=== PATIENT | male | born 1950 | race Caucasian/White ===

== ENCOUNTER 2018-01-26 13:44 | Emergency (ER) | payer MEDICARE ==
[~2018-01-26 13:44] MED LIST: ISOVUE-370 76%-LOCM 1 ML ONE
--- NOTE | 2018-01-26 16:07 | RAD ---
PA AND LATERAL CHEST: Date: 01-26-18 History: Rib pain. Urinary retention. Comparison: None available. FINDINGS: Post-surgical changes related to cervical fusion lower cervical spine are noted. Vascular calcificati ons are seen in the abdominal aorta involving the iliac arteries. Cardiac silhouette and pulmonary va sculature are within normal limits. There is minimal patchy density seen at the right lung base which may be related to superimposition of structures including anterior ribboning and vascular structures , but a focal areas of pneumonitis cannot be entirely excluded as this is asymmetric compared to the contralateral left side. Lungs are otherwise clear. Cardiac silhouette and pulmonary vasculature are within normal limits. Osseous structures appear intact. IMPRESSION: 1. Minimal patchy density right lung base. This may represent superimposition of structures, but foca l area of pneumonitis could not be entirely excluded. Clinical correlation for pneumonitis is recomme nded as well as short interval follow up chest x-ray. 2. Visualized osseous structures appear intact. No pneumothorax or pleural effusion is seen. POS: [facility]
[2018-01-26 17:27] LABS: #Eosinphils 0.3 thou/uL (0.0-0.7); #Lymphocytes 1.8 thou/uL (1.20-3.40); #Monocytes 0.7 thou/uL (0.11-0.59); #Neutrophils 8.1 thou/uL (1.40-6.50); %Basophils 0.4 % (0.0-1.0); %Eosinophils 2.5 % (0.0-10.0); %Lymphocytes 16.5 % (21.0-51.0); %Monocytes 6.2 % (0.0-10.0); %Neutrophils 74.3 % (42.0-75.0); Hemoglobin 15.4 g/dL (14.0-18.0); Mean Corpuscular HGB CONC 34.9 g/dL (32.0-36.0); Mean Corpuscular Hemoglobin 31.6 pg (27.0-31.0); Mean Corpuscular Volume 90.7 fL (78.0-98.0); Mean Platelet Volume 6.5 fL (7.4-10.4); Platelet Count 365 thou/uL (130-400); RBC Distribution Width 12.7 % (11.5-14.5); Red Blood Cell (RBC) Count 4.85 mill/uL (4.70-6.10); White Blood Cell (WBC) Count 10.9 thou/uL (4.8-10.8)
[2018-01-26 17:56] LABS: ALT (SGPT) 18 U/L (8-55); AST (SGOT) 17 U/L (5-34); Albumin 4.5 g/dL (3.4-4.8); Alkaline Phosphatase 127 U/L (40-150); Anion Gap 14 mmol/L (10-20); BUN (Urea Nitrogen) 11 mg/dL (8.4-25.7); Bilirubin, Total 0.6 mg/dL (0.2-1.2); Calc. Creatinine Clearance 0 mL/min (70-130); Calcium 9.7 mg/dL (7.8-10.44); Carbon Dioxide 29 mmol/L (23-31); Chloride 98 mmol/L (98-107); Estimated GFR-MDRD 85; Globulin 3.7 g/dL (2.4-3.5); Glucose 90 mg/dL (80-115); Lipase 4 U/L (8-78); Potassium 3.2 mmol/L (3.5-5.1); Protein, Total 8.2 g/dL (5.8-8.1); Sodium 138 mmol/L (136-145)
[2018-01-26 18:21] LABS: Bilirubin Negative (Negative); Blood, Urine Negative (Negative); Clarity CLEAR (Clear); Glucose, Urine (Dipstick) Negative (Negative); Leukocyte Negative (Negative); Nitrite Negative (Negative); Protein, Urine (Dipstick) Negative (Neg-Trace); Specific Gravity, Urine 1.008 (1.002-1.036); Urobilinogen 0.2 mg/dL (0.2-1.0)
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
--- NOTE | 2018-02-07 11:13 | EKG ---
Test Reason : Blood Pressure : / mmHG Vent. Rate : 067 BPM Atrial Rate : 067 BPM P-R Int : 156 ms QRS Dur : 076 ms QT Int : 444 ms P-R-T Axes : 024 014 022 degrees QTc Int : 469 ms Normal sinus rhythm Normal ECG Baseline Artifact Present limits interpretation Confirmed by JAYDON HERNANDEZ DO ([id number]), editorial writer JIE GARCIA ([id number]) on 02/07/2018 11:13:15 AM Referred By: Confirmed By:JAYDON HERNANDEZ DO
== END 2018-01-26 19:48 | disposition home or self-care (01) ==
LOC: ERS 13:44
DX: S09.90XA Unspecified injury of head, initial encounter (principal); S41.112A Laceration without foreign body of left upper arm, initial encounter; S20.212A Contusion of left front wall of thorax, initial encounter; I10 Essential (primary) hypertension; E78.00 Pure hypercholesterolemia, unspecified; E03.9 Hypothyroidism, unspecified; N40.0 Benign prostatic hyperplasia without lower urinary tract symptoms; F17.210 Nicotine dependence, cigarettes, uncomplicated; Z79.899 Other long term (current) drug therapy; V49.9XXA Car occupant (driver) (passenger) injured in unspecified traffic accident, initial encounter; R33.9 Retention of urine, unspecified; R06.00 Dyspnea, unspecified; R07.9 Chest pain, unspecified; T07.XXXA Unspecified multiple injuries, initial encounter
CPT/HCPCS: 70450; 71046; 71260; 72125; 74177; 80053; 81003; 83690; 85025; 87086; 90471; 93005; 94760; 99213; G0463

== ENCOUNTER 2019-05-16 13:38 | Inpatient (IN) | payer MEDICARE ==
[~2019-05-16 13:38] MED LIST changes: -ISOVUE-370 76%-LOCM 1 ML ONE; +Iopamidol-370 76% 500 ML 1 ML ONE
[2019-05-16 15:01] LABS: #Eosinphils 0.1 thou/uL (0.0-0.7); #Lymphocytes 1.2 thou/uL (1.20-3.40); #Monocytes 0.8 thou/uL (0.11-0.59); #Neutrophils 14.5 thou/uL (1.40-6.50); %Basophils 0.1 % (0.0-1.0); %Eosinophils 0.8 % (0.0-10.0); %Lymphocytes 7.1 % (21.0-51.0); %Monocytes 4.5 % (0.0-10.0); %Neutrophils 87.5 % (42.0-75.0); Hemoglobin 11.7 g/dL (14.0-18.0); Mean Corpuscular HGB CONC 33.6 g/dL (32.0-36.0); Mean Corpuscular Hemoglobin 30.9 pg (27.0-31.0); Mean Corpuscular Volume 91.9 fL (78.0-98.0); Mean Platelet Volume 7.3 fL (7.4-10.4); Platelet Count 280 thou/uL (130-400); RBC Distribution Width 12.5 % (11.5-14.5); Red Blood Cell (RBC) Count 3.78 mill/uL (4.70-6.10); White Blood Cell (WBC) Count 16.6 thou/uL (4.8-10.8)
[2019-05-16 15:09] LABS: INR-International Normal Ratio 1.1; PTT 35.5 SEC (22.9-36.1)
[2019-05-16 15:24] LABS: ALT (SGPT) 18 U/L (8-55); AST (SGOT) 24 U/L (5-34); Acetaminophen Less than 6.0 mcg/mL (10.0-30.0); Albumin 3.7 g/dL (3.4-4.8); Alcohol Less than 10 mg/dL (Less than 10); Alkaline Phosphatase 87 U/L (40-110); Anion Gap 12 mmol/L (10-20); BUN (Urea Nitrogen) 21 mg/dL (8.4-25.7); Bilirubin, Total 0.5 mg/dL (0.2-1.2); Calc. Creatinine Clearance 0 mL/min (70-130); Calcium 8.9 mg/dL (7.8-10.44); Carbon Dioxide 26 mmol/L (23-31); Chloride 100 mmol/L (98-107); Estimated GFR-MDRD 63; Globulin 2.9 g/dL (2.4-3.5); Glucose 77 mg/dL (80-115); Lipase 12 U/L (8-78); Potassium 3.9 mmol/L (3.5-5.1); Protein, Total 6.6 g/dL (5.8-8.1); Salicylate Less than 8.0 mg/dL (15.0-30.0); Sodium 134 mmol/L (136-145)
[2019-05-16] MEDS ORDERED: Azithromycin 500 MG VIAL ONE (15:27)
[2019-05-16] MEDS ORDERED: cefTRIAXone\\ROCEPHIN 2 GM VIAL ONE (15:27)
--- NOTE | 2019-05-16 16:13 | CT ---
CT Chest Abd Pelvis W Con Limited CT thoracic spine with contrast Limited CT lumbosacral spine with contrast History: Injury. Trauma. Comparison: CT chest abdomen pelvis January 2018 Findings: Severe background paraseptal emphysema and centrilobular emphysema. Spiculated mass posteri or segment right upper lobe projected 3.5 cm size with extensive adjacent subchondral fixation. There is displacement of the right major fissure. There is also numerous nodules throughout the right middle lobe, lingula, and right lower lobe. No significant mediastinal adenopathy. No pericardial effusion. Aorta is unremarkable. The sternum and manubrium are intact. No thoracic spine or lumbar spine compression fracture or no si gnificant listhesis. The spinous processes are intact. Visualized portion of the scapula are intact as well as visualized clavicles. No acute displaced right-sided rib fracture. No displaced left-sided rib fracture. The thoracic spine transverse processes are intact. No soft tissue contusion of the thorax. Liver is unremarkable as well as the gallbladder. Spleen is unremarkable. There is aneurysmal dilatat ion of the infrarenal abdominal aorta measuring up to 3.9 cm for a length of 6.5 cm. Osseous pelvis is intact. No pubic symphyseal widening. No SI joint widening. The femoral heads and f emoral necks are intact. No lumbar spine transverse process fracture. No soft tissue contusion. No hydronephrosis. No dilated loops of large or small bowel. No mesenteric hematoma. Sebaceous cyst over the right lower lateral flank/thigh. Impression: 1. Spiculated mass right upper lobe as described highly concerning for malignancy as this is new from the 2018 exam. Nonemergent follow-up pulmonary consultation and bronchoscopy is recommended. Severe background emphysema. 2. Patchy throughout both lungs concerning for superimposed infection. Underlying contusion is felt l ess likely given the lack with rib fractures and soft tissue contusion. 3. Infrarenal abdominal aorta measuring up to 3.9 cm for a length of 6.5 cm. 4. No acute traumatic abnormality within the chest, abdomen, or pelvis. 5. Asymmetric size of the kidneys with the right kidney is much smaller the left kidney may be sequel ae of vascular insufficiency versus chronic reflux disease. This is similar. 6. Similar appearance of the small nodule along the medial limb left adrenal gland.
[2019-05-16] MEDS ORDERED: Acetaminophen 325 MG TAB PO PRN (16:14)
[2019-05-16] MEDS ORDERED: Senokot S 8.6-50 MG TAB PO PRN (16:14)
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
--- NOTE | 2019-05-16 16:17 | CT ---
CERVICAL SPINE CT WITHOUT CONTRAST: Date: 05/16/19 HISTORY: Injury, trauma, pain. TECHNIQUE: Axial CT imaging at 2.5 mm intervals through the cervical spine with coronal and sagittal reformatted imaging. FINDINGS: The occipital condyles, dens, and C1-2 articulation appear within normal limits. There is moderate degenerative change at the atlantoaxial interspace. Anterior diskectomy and fusion hardware present at C5-6. No significant anterolisthesis or retrolisthesis is noted. No prevertebral soft tissue swelling. The C1 ring appears intact. No displaced fracture or evidence of dislocation is seen involving the ce rvical spine. Imaged lung apices demonstrate emphysematous change. There is atherosclerotic calcification of the carotid system, only partially visualized on this exam. There is multilevel mid cervical spine uncovertebral osteophyte formation bilaterally. IMPRESSION: Multilevel degenerative change. No acute fracture or dislocation of the cervical spine. POS: [facility]
[2019-05-16 16:31] LABS: Amphetamine Not Detected (NotDetected); Barbiturates Screen Not Detected (NotDetected); Benzodiazepine Screen Detected (NotDetected); Cocaine Metabolite Screen Not Detected (NotDetected); Medtox Control Line Valid? VALID (VALID); Medtox Reader # READER 1; Methadone Not Detected (NotDetected); Methamphetamine Not Detected (NotDetected); Opiate Screen Detected (NotDetected); Oxycodone Screen Not Detected (NotDetected); Phencyclidine (PCP) Not Detected (NotDetected); THC/Cannabinoid Screen Detected (NotDetected); Tricyclic Screen Not Detected (NotDetected)
[2019-05-16] MEDS ORDERED: methylPREDNISolone Sod Succ/PF 125 MG/2 ML VIAL IVP SCH (16:45)
[2019-05-16 17:09] LABS: Base Excess-Venous -2.1 mmol/L (-2.0 to 3.0); Bicarbonate (HCO3v) 23.9 mmol/L (22.0-28.0); CO2 Tension (PvCO2) 45.2 mmHg (40.0-50.0); Calcium, Ionized 1.03 mmol/L (See Comments:); Chloride 103 mmol/L (98-107); Hemoglobin - Calc 12.3 g/dL (14.0-18.0); Potassium 3.9 mmol/L (3.5-5.1); Sodium 136 mmol/L (138-145); T. Carbon Dioxide 25.3 mmol/L (22.0-28.0); vO2 Saturation-calc 82.2 % (60.0-85.0)
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
[2019-05-16 18:02] VITALS: BMI 21.6
[2019-05-16] MEDS: Ipratropium Bromide 2.5 ml Neb NEB SCH ×2 (18:23→21:42)
[2019-05-16 18:56] LABS: Troponin I 0.031 ng/mL (< 0.028)
[2019-05-16] MEDS: Nicotine 21 MG PATCH TD SCH (19:17)
[2019-05-16] MEDS ORDERED: HYDROcodone/Acetaminophen 5/325 mg Tablet PO SCH (21:15)
[2019-05-16] MEDS ORDERED: Gabapentin 300 MG CAP PO SCH (21:15)
[2019-05-16] MEDS: Docusate 100 MG CAP PO SCH (21:20)
[2019-05-16] MEDS: Atorvastatin Calcium 20 MG TAB PO SCH (21:22)
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
[2019-05-16 22:46] LABS: Troponin I 0.035 ng/mL (< 0.028)
[2019-05-17] MEDS: methylPREDNISolone Sod Succ 40 MG VIAL IVP SCH ×5 (05:35→23:40)
[2019-05-17] MEDS: Levothyroxine Sodium 112 MCG TAB PO SCH (05:36)
[2019-05-17 06:00] LABS: #Basophils 0.2 thou/uL (0.0-0.2); #Lymphocytes 0.7 thou/uL (1.20-3.40); #Monocytes 0.1 thou/uL (0.11-0.59); #Neutrophils 13.1 thou/uL (1.40-6.50); %Basophils 1.4 % (0.0-1.0); %Eosinophils 0.1 % (0.0-10.0); %Monocytes 0.9 % (0.0-10.0); %Neutrophils 92.6 % (42.0-75.0); Hemoglobin 11.8 g/dL (14.0-18.0); Mean Corpuscular Hemoglobin 30.9 pg (27.0-31.0); Mean Corpuscular Volume 90.9 fL (78.0-98.0); Mean Platelet Volume 7.6 fL (7.4-10.4); Platelet Count 283 thou/uL (130-400); RBC Distribution Width 12.3 % (11.5-14.5); Red Blood Cell (RBC) Count 3.81 mill/uL (4.70-6.10); White Blood Cell (WBC) Count 14.1 thou/uL (4.8-10.8)
[2019-05-17 06:19] LABS: Anion Gap 13 mmol/L (10-20); BUN (Urea Nitrogen) 18 mg/dL (8.4-25.7); Calc. Creatinine Clearance 81 mL/min (70-130); Calcium 8.9 mg/dL (7.8-10.44); Carbon Dioxide 24 mmol/L (23-31); Chloride 102 mmol/L (98-107); Estimated GFR-MDRD 86; Glucose 105 mg/dL (80-115); Sodium 135 mmol/L (136-145)
[2019-05-17] MEDS ORDERED: Prevnar 13-Val Conj/PF 0.5 ML SYRINGE IM ONE (09:00)
[2019-05-17] MEDS: Clopidogrel Bisulfate 75 MG TAB PO SCH (09:30)
[2019-05-17] MEDS: Docusate 100 MG CAP PO SCH ×2 (09:30→20:20)
[2019-05-17] MEDS: Enoxaparin Sodium 40 MG/0.4 ML SYRINGE SC SCH (09:30)
[2019-05-17] MEDS: Tamsulosin HCl 0.4 MG CAP PO SCH (09:31)
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
[2019-05-17] MEDS ORDERED: cefTRIAXone\\ROCEPHIN 1 GM in Sodium Chloride 0.9% 100 ML IVPB SCH (14:00)
[2019-05-17] MEDS ORDERED: Azithromycin 500 MG in Sodium Chloride 0.9% 250 ML 250 ML IVPB SCH (15:00)
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
[2019-05-17] MEDS: Nicotine 21 MG PATCH TD SCH (18:24)
[2019-05-17] MEDS: Atorvastatin Calcium 20 MG TAB PO SCH (20:20)
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
[2019-05-18 04:11] LABS: #Basophils 0.1 thou/uL (0.0-0.2); #Lymphocytes 0.6 thou/uL (1.20-3.40); #Monocytes 0.4 thou/uL (0.11-0.59); #Neutrophils 11.5 thou/uL (1.40-6.50); %Basophils 0.7 % (0.0-1.0); %Eosinophils 0.1 % (0.0-10.0); %Lymphocytes 4.8 % (21.0-51.0); %Monocytes 3.1 % (0.0-10.0); %Neutrophils 91.4 % (42.0-75.0); Hemoglobin 11.2 g/dL (14.0-18.0); Mean Corpuscular HGB CONC 33.1 g/dL (32.0-36.0); Mean Corpuscular Hemoglobin 30.2 pg (27.0-31.0); Mean Corpuscular Volume 91.2 fL (78.0-98.0); Mean Platelet Volume 7.4 fL (7.4-10.4); Platelet Count 299 thou/uL (130-400); RBC Distribution Width 12.5 % (11.5-14.5); Red Blood Cell (RBC) Count 3.69 mill/uL (4.70-6.10); White Blood Cell (WBC) Count 12.6 thou/uL (4.8-10.8)
[2019-05-18 04:29] LABS: Anion Gap 11 mmol/L (10-20); BUN (Urea Nitrogen) 22 mg/dL (8.4-25.7); Calc. Creatinine Clearance 81 mL/min (70-130); Calcium 8.9 mg/dL (7.8-10.44); Carbon Dioxide 27 mmol/L (23-31); Chloride 105 mmol/L (98-107); Estimated GFR-MDRD 86; Glucose 189 mg/dL (80-115); Potassium 3.7 mmol/L (3.5-5.1); Sodium 139 mmol/L (136-145)
[2019-05-18] MEDS: Levothyroxine Sodium 112 MCG TAB PO SCH (06:03)
[2019-05-18] MEDS: methylPREDNISolone Sod Succ 40 MG VIAL IVP SCH ×2 (06:03→12:09)
--- NOTE | 2019-05-18 07:53 | RAD ---
Chest one view HISTORY: Dyspnea. Follow-up. COMPARISON: 05/16/2019. FINDINGS: Cardiac silhouette is magnified and upper limits of normal in size. Pulmonary vasculature r emains engorged with patchy areas of ill-defined parenchymal opacity correlating with that on recent CT chest. More focal masslike area projecting over the right upper lobe is also again demonstr ated. Mediastinum is midline with aortic calcification. No evidence of pneumothorax. industrial machine assembler leads overlie the chest. IMPRESSION: Right upper lobe mass, pulmonary vascular congestion, and patchy areas of mild parenchyma l infiltrate are stable.
[2019-05-18] MEDS: Docusate 100 MG CAP PO SCH ×3 (09:00→21:29)
[2019-05-18] MEDS: Tamsulosin HCl 0.4 MG CAP PO SCH ×2 (09:00→12:11)
[2019-05-18] MEDS: Clopidogrel Bisulfate 75 MG TAB PO SCH ×2 (09:00→12:10)
[2019-05-18] MEDS: Enoxaparin Sodium 40 MG/0.4 ML SYRINGE SC SCH ×3 (09:00→21:31)
--- NOTE | 2019-05-18 11:22 | NM ---
NUCLEAR MEDICINE CARDIAC MYOCARDIAL PERFUSION SPECT EJECTION FRACTION STUDY WALL MOTION CINE: DATE: 05/18/2019 12:00 AM. INDICATION: Syncope. TECHNIQUE: Number of days: 2. Rest Study: Technetium 99m-sestamibi (Cardiolite) dose:10.70 mCi. Stress study: Technetium 99m-sestamibi (Cardiolite) dose:30.0 mCi. FINDINGS: Cardiac (myocardial perfusion) SPECT: There are no reversible myocardial perfusion defects. There is predominantly a fixed defect involving the basal to apical inferior wall likely related to diaphragmatic dilatation. There is some colon activity seen underlying the left ventricle on the stress images only that slightly limits detail. Th ere is mild left ventricular dilatation on both the rest and stress images. Ejection fraction study: Left ventricular EF = 50%. Wall motion cine There is normal wall motion and thickening. IMPRESSION: 1. No evidence of reversible myocardial ischemia. 2. Predominantly fixed defect involving the basal to apical inferior wall is likely related to diaph ragmatic attenuation. 3. Mild left ventricular dilatation. Transcribed Date/Time: 05/18/2019 11:25 AM
[2019-05-18] MEDS ORDERED: HYDROcodone/Acetaminophen 10/325 mg Tablet PO PRN (11:39)
[2019-05-18] MEDS ORDERED: Gabapentin 300 MG CAP PO PRN (11:39)
--- NOTE | 2019-05-18 12:39 | PRG ---
DATE OF SERVICE: 05/18/2019 SUBJECTIVE: This morning, he is better with less shortness of breath, less cough, less wheezing. OBJECTIVE: VITAL SIGNS: His sats are 96%_ on 2 L, pulse 77, respirations 15, blood pressure 139/73. CHEST: Minimal rhonchi. CARDIAC: Normal S1, S2. No gallops. ABDOMEN: No masses. DIAGNOSTIC STUDIES: He had a stress test done today, which showed left ventricle EF was 50%. Normal wall motion was seen. X-ray shows previously described right upper lung nodular density. ASSESSMENT: 1. Chronic obstructive pulmonary disease exacerbation. 2. Bronchitis. 3. Respiratory failure. 4. Severe deconditioning. 5. Coronary artery disease. PLAN: Switch him over to oral medication. PT, supportive care. We will follow. Job ID: [id number] MTDD
--- NOTE | 2019-05-18 13:48 | PRG ---
DATE OF SERVICE: 05/18/2019 SUBJECTIVE: Mr. Grady is doing okay. He is not having chest pain or pressure. OBJECTIVE: VITAL SIGNS: Blood pressure 146/86, pulse is variable between 70 to 110. He is having brief episodes of atrial fibrillation. LUNGS: Clear. CARDIAC: Irregular. ABDOMEN: Soft and nontender. EXTREMITIES: No edema. Stress test revealed a fixed defect of the inferior wall, looks like diaphragmatic attenuation artifact. ASSESSMENT: 1. Episode of loss of consciousness. 2. Peripheral vascular disease. 3. Chronic obstructive pulmonary disease. PLAN: It looks like the patient does have paroxysmal atrial fibrillation. We will need to monitor this gentleman and see if he have any pauses. If he has a pacemaker, it will be indicated. If he does not, then I told him that he needs to follow up at [facility] to get a 30-day event monitor placed. Job ID: [id number]
[2019-05-18] MEDS ORDERED: Regadenoson 0.4 MG/5 ML SYRINGE ONE (15:48)
[2019-05-18] MEDS: predniSONE 20 MG TAB PO SCH (17:13)
[2019-05-18] MEDS: Nicotine 21 MG PATCH TD SCH (17:13)
[2019-05-18] MEDS: Mometasone/Formoterol 120 PUFF INHALER INH SCH (18:07)
[2019-05-18] MEDS: Doxycycline 100 MG CAP PO SCH (21:29)
[2019-05-18] MEDS: Atorvastatin Calcium 20 MG TAB PO SCH (21:29)
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
[2019-05-19 05:44] LABS: Anion Gap 15 mmol/L (10-20); BUN (Urea Nitrogen) 13 mg/dL (8.4-25.7); Calc. Creatinine Clearance 93 mL/min (70-130); Calcium 9.2 mg/dL (7.8-10.44); Carbon Dioxide 28 mmol/L (23-31); Chloride 100 mmol/L (98-107); Estimated GFR-MDRD Greater than 90; Glucose 100 mg/dL (80-115); Potassium 3.3 mmol/L (3.5-5.1); Sodium 140 mmol/L (136-145)
[2019-05-19 05:57] LABS: Band 4 % (5-11); Lymphocytes 10 % (21-51); MDiff Complete? YES; Mean Corpuscular HGB CONC 33.5 g/dL (32.0-36.0); Mean Corpuscular Hemoglobin 30.5 pg (27.0-31.0); Mean Corpuscular Volume 90.8 fL (78.0-98.0); Mean Platelet Volume 7.4 fL (7.4-10.4); Monocytes 4 % (0-10); Neutrophil 82 % (42-75); Platelet Count 424 thou/uL (130-400); RBC Distribution Width 12.5 % (11.5-14.5); Red Blood Cell (RBC) Count 4.28 mill/uL (4.70-6.10)
[2019-05-19] MEDS ORDERED: Levothyroxine Sodium 125 MCG TAB PO SCH (06:00)
--- NOTE | 2019-05-19 07:33 | RAD ---
EXAM: Single view of the chest HISTORY: Ventilated patient with respiratory failure COMPARISON: 05/18/2019 FINDINGS: Single view of the chest shows a normal sized cardiomediastinal silhouette. Scattered mult ifocal infiltrates are stable. No pleural effusion is seen. The bones are unremarkable. IMPRESSION: Stable exam
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
[2019-05-19] MEDS: Mometasone/Formoterol 120 PUFF INHALER INH SCH (08:00)
[2019-05-19] MEDS ORDERED: Dutasteride 0.5 MG CAP PO SCH (09:00)
[2019-05-19] MEDS: Clopidogrel Bisulfate 75 MG TAB PO SCH (09:04)
[2019-05-19] MEDS: predniSONE 20 MG TAB PO SCH ×2 (09:04→17:00)
[2019-05-19] MEDS: Tamsulosin HCl 0.4 MG CAP PO SCH (09:04)
[2019-05-19] MEDS: Doxycycline 100 MG CAP PO SCH (09:04)
[2019-05-19] MEDS: Enoxaparin Sodium 40 MG/0.4 ML SYRINGE SC SCH (09:05)
[2019-05-19] MEDS: Docusate 100 MG CAP PO SCH (09:05)
[2019-05-19] MEDS ORDERED: Potassium Chloride 20 MEQ TAB PO SCH (09:30)
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
[2019-05-19 12:08] VITALS: TEMP 98.1
--- NOTE | 2019-05-19 14:28 | PDOC.EVN ---
Event Note - Event Note Event Note: pt needs home oxygen arranged due to RA oxygen sat of 88% at rest, has severe copd.
[2019-05-19 16:07] VITALS: BP 147/81
[2019-05-19] MEDS: Nicotine 21 MG PATCH TD SCH (17:00)
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
[2019-05-20] MEDS ORDERED: Apixaban 5 MG TAB PO SCH (21:00)
== END 2019-05-19 17:11 | disposition home or self-care (01) | DRG 189 ==
LOC: ERS 13:38 → CCU 17:54 → 2SE 05-18 14:12
PROVIDERS: ADMIT Internal Medicine; ATTEND Internal Medicine
DX: J96.01 Acute respiratory failure with hypoxia (principal); J44.1 Chronic obstructive pulmonary disease with (acute) exacerbation; G93.40 Encephalopathy, unspecified; R91.8 Other nonspecific abnormal finding of lung field; I73.9 Peripheral vascular disease, unspecified; R55 Syncope and collapse; I10 Essential (primary) hypertension; N40.0 Benign prostatic hyperplasia without lower urinary tract symptoms; E03.9 Hypothyroidism, unspecified; F17.200 Nicotine dependence, unspecified, uncomplicated; I71.4 Abdominal aortic aneurysm, without rupture; I25.10 Atherosclerotic heart disease of native coronary artery without angina pectoris; V48.0XXA Car driver injured in noncollision transport accident in nontraffic accident, initial encounter; Y93.89 Activity, other specified; Y92.488 Other paved roadways as the place of occurrence of the external cause
CPT/HCPCS: 36415; 51701; 70450; 71045; 71260; 72125; 74177; 78452; 80048; 80053; 80306; 80307; 82330; 82803; 83605; 83690; 83880; 84443; 84484; 85025; 85610; 85730; 86850; 86900; 86901; 87040; 87633; 87798; 87804; 90471; 90670; 93005; 93017; 93306; 94640; 94760; 96361; 96365; 96367; A9500; G0009; J0456; J0696; J1650; J2785; J2920; J2930; J3490; J7512; J7620; Q9967